=== PATIENT | male | born 1960 | race Caucasian/White ===

== ENCOUNTER → 2016-05-13 | Outpatient (CLI) | payer OTHER ==
[~2016-05-13] MED LIST: ALBI1INJ SQ; ATOR-22 PO; CLR10 PO; CRDCD240 PO; CYAN100T PO; CYAN500T13 PO; DLTCD/240 PO; FRS/40 PO; GEMF600T3 PO; INSDGIPEN SC; INSU100I2 SQ; INSU1INJ33 SQ; LISI-461 PO; LISI-729 PO; METF1000 PO; PANT40TA PO; PROAIR INH; ROPI2TAB6 PO; SPIR25TA PO; SPIR50TA3 PO
[2016-05-13 09:39] LABS: BASO % 0.2 %; BASO ABS # 0.01 K/uL (0-0.2); COMPLETE YES; EOS % 2.6 %; HEMATOCRIT 41.3 % (42-52); IG% 0.9 %; LYMPH % 31.3 %; LYMPH ABS # 1.43 K/uL (1.2-3.4); MEAN CELL VOLUME 85.9 fL (80-100); MEAN CORPUSCULAR HEMOGLOBIN 31.2 pg (25-34); MEAN CORPUSCULAR HGB CONC 36.3 g/dl (32-36); MEAN PLATELET VOLUME 11.8 fL (7.4-10.4); MONO % 8.3 %; NEUT % 56.7 %; PLATELET COUNT 160 K/uL (130-400); RED BLOOD COUNT 4.81 M/uL (4.7-6.1); WHITE BLOOD COUNT 4.57 K/uL (4.8-10.8)
[2016-05-13 09:53] LABS: ESTIMATED AVERAGE GLUCOSE 243 mg/dl; HA1C FLAG Normal (Normal)
[2016-05-13 10:03] LABS: ALT/SGPT 25 U/L (12-78); AST/SGOT 9 U/L (15-37); BLOOD UREA NITROGEN 21 mg/dl (7-18); BUN/CREATININE RATIO 17.8 (10-20); CALCIUM 8.8 mg/dl (8.5-10.1); CARBON DIOXIDE 23 mmol/L (21-32); CHLORIDE 104 mmol/L (98-107); CHOLESTEROL 127 mg/dl (0-200); GLUCOSE 230 mg/dl (70-99); POTASSIUM 4.3 mmol/L (3.5-5.1); SODIUM 136 mmol/L (136-145); TRIGLYCERIDES 257 mg/dl (0-150); VERY LOW DENSITY LIPOPROT CALC 51 mg/dl
[2016-05-13 10:08] LABS: ALB/GLOB RATIO 1.3 (0.9-2); ALKALINE PHOSPHATASE 84 U/L (45-117); CHOLESTEROL/HDL RATIO 3.6; HDL CHOLESTEROL 35 mg/dl; LDL CHOLESTEROL CALCULATED 41 mg/dl
[2016-05-13 11:03] LABS: RATIO 225.6 mcg/mg (0-30.0)
== END | disposition home or self-care (01) ==
LOC: C.LAB1850 07:55
PROVIDERS: ATTEND Nurse Practitioner Family
DX: I10 Essential (primary) hypertension (principal); E66.3 Overweight; R97.20 Elevated prostate specific antigen [PSA]; N40.0 Benign prostatic hyperplasia without lower urinary tract symptoms; E78.5 Hyperlipidemia, unspecified; R80.9 Proteinuria, unspecified; E11.21 Type 2 diabetes mellitus with diabetic nephropathy; J31.0 Chronic rhinitis

== ENCOUNTER → 2016-06-30 | Outpatient (CLI) | payer OTHER ==
--- NOTE | 2016-06-30 10:58 | DIAGNOSTIC IMAGING REPORT ---
RENAL ULTRASOUND CLINICAL HISTORY: DIABETIC NEPHROPATHY COMPARISON STUDY: None. TECHNIQUE: Sonography of the kidneys and the urinary bladder was performed. FINDINGS: The right kidney measures 11.6 x 6 x 5.1 cm and the left measures 11.6 x 4.5 x 5.5 cm. There is no hydronephrosis. Note is made of a 2.3 cm cyst within the mid aspect of the right renal pelvis. Renal echogenicity, size and cortical thickness are normal. The prostate is moderately enlarged. Interval note is made of mild splenomegaly. IMPRESSION: 1. No hydronephrosis. 2. Mild splenomegaly. 3. Moderate enlargement of the prostate. Electronically signed by: Simón Alonzo M.D. 06/30/2016 10:57 AM Dictated Date/Time: 06/30/2016 10:56 AM
== END | disposition home or self-care (01) ==
LOC: C.ULTR 10:31
PROVIDERS: ATTEND Internal Medicine Nephrology
DX: E11.21 Type 2 diabetes mellitus with diabetic nephropathy (principal); R16.1 Splenomegaly, not elsewhere classified; N40.0 Benign prostatic hyperplasia without lower urinary tract symptoms

== ENCOUNTER 2016-07-09 17:27 | Emergency (ER) | payer OTHER ==
[~2016-07-09] VITALS: Ht 165.1 cm; Wt 90.0 kg
[~2016-07-09 17:27] MED LIST changes: -ALBI1INJ SQ; -CYAN100T PO; -CYAN500T13 PO; -DLTCD/240 PO; -FRS/40 PO; -INSU100I2 SQ; -INSU1INJ33 SQ; -LISI-461 PO; -PROAIR INH; -SPIR50TA3 PO
[2016-07-09 17:38] VITALS: TEMP 36.8; Ht 165.1 cm; Wt 90.0 kg
[2016-07-09] MEDS ORDERED: FRS/40 PO (18:02)
[2016-07-09 18:54] LABS: BASO % 0.3 %; BASO ABS # 0.02 K/uL (0-0.2); COMPLETE YES; EOS % 1.4 %; HEMATOCRIT 44.9 % (42-52); IG% 0.5 %; LYMPH % 29.7 %; LYMPH ABS # 1.92 K/uL (1.2-3.4); MEAN CELL VOLUME 88.4 fL (80-100); MEAN CORPUSCULAR HEMOGLOBIN 31.1 pg (25-34); MEAN CORPUSCULAR HGB CONC 35.2 g/dl (32-36); MEAN PLATELET VOLUME 11.7 fL (7.4-10.4); MONO % 10.4 %; NEUT % 57.7 %; PLATELET COUNT 254 K/uL (130-400); RED BLOOD COUNT 5.08 M/uL (4.7-6.1); WHITE BLOOD COUNT 6.47 K/uL (4.8-10.8)
[2016-07-09 19:06] LABS: PROTHROMBIN TIME (PATIENT) 10.4 SECONDS (9.0-12.0)
[2016-07-09 19:11] LABS: BUN/CREATININE RATIO 20.9 (10-20); CREATININE 2.1 mg/dl (0.60-1.40); POTASSIUM 4.5 mmol/L (3.5-5.1)
[2016-07-09 19:14] LABS: ALB/GLOB RATIO 1.3 (0.9-2)
--- NOTE | 2016-07-09 19:14 | DIAGNOSTIC IMAGING REPORT ---
LEFT LOWER EXTREMITY VENOUS DOPPLER HISTORY: Leg swelling. Leg trauma. EVALUATE FOR DVT COMPARISON STUDY: None. FINDINGS: There is normal compressibility, flow, and augmentation within the left lower extremity deep venous system. Within the subcutaneous fat of the left medial distal thigh there is a 7.7 x 5.8 x 0.8 cm complex fluid collection. This likely represents a subcutaneous hematoma. IMPRESSION: No DVT within the left lower extremity. A 7.7 x 5.8 x 0.7 cm complex fluid cleft within the subcutaneous fat of the left medial distal thigh. This likely represents a subcutaneous hematoma. This could represent a degloving injury. Electronically signed by: Kurtis Randolph M.D. 07/09/2016 7:12 PM Dictated Date/Time: 07/09/2016 7:10 PM
[2016-07-09 19:16] VITALS: O2SAT 95
[2016-07-09] MEDS ORDERED: PANT40TA PO (19:28)
[2016-07-09] MEDS ORDERED: ALBI1INJ SQ (19:28)
[2016-07-09] MEDS ORDERED: SPIR50TA3 PO (19:28)
[2016-07-09] MEDS ORDERED: LISI-461 PO (19:28)
[2016-07-09] MEDS ORDERED: PROAIR INH (19:28)
[2016-07-09] MEDS ORDERED: DLTCD/240 PO (19:28)
[2016-07-09] MEDS ORDERED: INSU1INJ33 SQ (19:34)
[2016-07-09] MEDS ORDERED: INSU100I2 SQ (19:34)
[2016-07-09] MEDS ORDERED: CYAN100T PO (19:34)
[2016-07-09] MEDS ORDERED: SODIUM CHLORIDE 0.9% 500ML 500 ML IV STA (19:41)
[2016-07-09] MEDS ORDERED: CYAN500T13 PO (19:50)
[2016-07-09 20:41] LABS: URINE APPEARANCE CLEAR (CLEAR); URINE BILIRUBIN NEG (NEG); URINE COLOR YELLOW; URINE NITRITE NEG (NEG); URINE SPECIFIC GRAVITY 1.016 (1.000-1.030); UROBILINOGEN NEG (NEG); ZZUR CULT IF INDIC CLEAN CATCH NO
[2016-07-09 20:45] LABS: CALCIUM 10.2 mg/dl (8.5-10.1)
[2016-07-09 20:56] LABS: MANUAL MICROSCOPIC REQUIRED? NO; REVIEW REQ? NO
--- NOTE | 2016-07-09 21:52 | EMERGENCY ROOM VISIT NOTE ---
History Report prepared by Deisy: Apurva Guevara Under the Supervision of: Dr. Irwin Salazar M.D. First contact with patient: 18:30 Chief Complaint: LEG PAIN,LEG INJURY Stated Complaint: POSSIBLE BLOOD CLOT L THIGH History of Present Illness The patient is a 56 year old male who presents to the Emergency Room with complaints of worsening left leg pain that started 1 week ago. 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 He states that the pain got better but then his leg became edematous, hard, and the pain returned. The patient's workman's compensation follow-up was at [facility] earlier today and they felt that he needed to come into the ED for further evaluation to rule out a DVT. Pt denies LOC, headache, fevers, chills, diaphoresis, visual changes, neck pain, chest pain, breathing difficulties, nausea, vomiting, abdominal pain, back pain, melena, hematochezia, urinary symptoms, numbness, weakness, lymphadenopathy, rash, or other complaints. He states that he has been eating and drinking normally. The patient states that he took ibuprofen last weekend, but denies any recent aspirin use. He adds that his Lisinopril was recently increased from 5 mg to 10 mg. Source of History: patient Onset: 1 week ago Position: leg (left) Quality: other (left leg pain) Timing: worsening Note: left leg edema Review of Systems See HPI for pertinent positives and negatives. A total of ten systems were reviewed and were otherwise negative. Past Medical & Surgical Medical Problems: (1) Diabetes (2) Diverticulosis Colon (W/O Ment Of Hemorrhage) (3) Hypertension Nos Family History Diabetes mellitus FH: breast cancer Social History Smoking Status: Never Smoker Marital Status: Housing Status: lives with significant other Current/Historical Medications Scheduled Albiglutide (Tanzeum), 30 MG SQ WK Atorvastatin (Lipitor), 20 MG PO QPM Cyanocobalamin (Vitamin B12 500MCG), 500 MCG PO DAILY Diltiazem Hcl (Diltiazem Cd), 240 MG PO DAILY Furosemide (Lasix), 40 MG PO DAILY Gemfibrozil (Lopid), 1 TAB PO BID Insulin Degludec (Tresiba Flextouch), 50 UNITS SQ HS Insulin Lispro (Human) (Humalog Kwikpen), 10 UNITS SQ TID Lisinopril (Lisinopril), 10 MG PO DAILY Metformin Hcl (Glucophage), 1,000 MG PO BID Ropinirole (Requip), 2 MG PO HS Spironolactone (Aldactone), 50 MG PO DAILY Scheduled PRN [Proair], 2 PUFF INH Q4 PRN for SOB/Wheezing Allergies Coded Allergies: No Known Allergies (Verified , 02/18/16) Physical Exam Vital Signs Date Time Temp Pulse Resp B/P Pulse Ox O2 Delivery O2 Flow Rate FiO2 07/09/16 21:09 78 18 120/64 96 Room Air 07/09/16 19:16 95 Room Air 07/09/16 19:16 78 18 119/67 95 Room Air 07/09/16 17:38 36.8 92 17 115/69 97 Room Air Physical Exam GENERAL: Awake, alert, well-appearing, in no distress HENT: Normocephalic, atraumatic. Oropharynx unremarkable. EYES: Normal conjunctiva. Sclera non-icteric. NECK: Supple. No nuchal rigidity. FROM. No JVD. RESPIRATORY: Clear to auscultation. CARDIAC: Regular rate, normal rhythm. Extremities warm and well perfused. Pulses equal. ABDOMEN: Soft, non-distended. No tenderness to palpation. No rebound or guarding. No masses. RECTAL: Deferred. MUSCULOSKELETAL: Chest examination reveals no tenderness. The back is symmetrical on inspection without obvious abnormality. There is no CVA tenderness to palpation. No joint edema. LOWER EXTREMITIES: Swelling and ecchymosis to the medial left thigh over the medial aspect of the distal hamstring. Calves are equal size bilaterally and non -tender. NEURO: Normal sensorium. No sensory or motor deficits noted. SKIN: No rash or jaundice noted. Medical Decision & Procedures ER Provider Diagnostic Interpretation: Radiology results as stated below per my review and radiologist interpretation: LEFT LOWER EXTREMITY VENOUS DOPPLER FINDINGS: There is normal compressibility, flow, and augmentation within the left lower extremity deep venous system. Within the subcutaneous fat of the left medial distal thigh there is a 7.7 x 5.8 x 0.8 cm complex fluid collection. This likely represents a subcutaneous hematoma. IMPRESSION: No DVT within the left lower extremity. A 7.7 x 5.8 x 0.7 cm complex fluid cleft within the subcutaneous fat of the left medial distal thigh. This likely represents a subcutaneous hematoma. This could represent a degloving injury. Electronically signed by: Kurtis Randolph M.D. 07/09/2016 7:12 PM Dictated Date/Time: 07/09/2016 7:10 PM Laboratory Results 07/09/16 18:41 Red Blood Count 5.08, Mean Corpuscular Volume 88.4, Mean Corpuscular Hemoglobin 31.1, Mean Corpuscular Hemoglobin Concent 35.2, Mean Platelet Volume 11.7, Neutrophils (%) (Auto) 57.7, Lymphocytes (%) (Auto) 29.7, Monocytes (%) (Auto) 10.4, Eosinophils (%) (Auto) 1.4, Basophils (%) (Auto) 0.3, Neutrophils # (Auto ) 3.74, Lymphocytes # (Auto) 1.92, Monocytes # (Auto) 0.67, Eosinophils # (Auto ) 0.09, Basophils # (Auto) 0.02 07/09/16 18:41 Test 07/09/16 18:41 07/09/16 20:20 White Blood Count 6.47 K/uL (4.8-10.8) Red Blood Count 5.08 M/uL (4.7-6.1) Hemoglobin 15.8 g/dL (14.0-18.0) Hematocrit 44.9 % (42-52) Mean Corpuscular Volume 88.4 fL (80-100) Mean Corpuscular Hemoglobin 31.1 pg (25-34) Mean Corpuscular Hemoglobin Concent 35.2 g/dl (32-36) Platelet Count 254 K/uL (130-400) Mean Platelet Volume 11.7 fL (7.4-10.4) Neutrophils (%) (Auto) 57.7 % Lymphocytes (%) (Auto) 29.7 % Monocytes (%) (Auto) 10.4 % Eosinophils (%) (Auto) 1.4 % Basophils (%) (Auto) 0.3 % Neutrophils # (Auto) 3.74 K/uL (1.4-6.5) Lymphocytes # (Auto) 1.92 K/uL (1.2-3.4) Monocytes # (Auto) 0.67 K/uL (0.11-0.59) Eosinophils # (Auto) 0.09 K/uL (0-0.5) Basophils # (Auto) 0.02 K/uL (0-0.2) RDW Standard Deviation 41.0 fL (36.4-46.3) RDW Coefficient of Variation 12.8 % (11.5-14.5) Immature Granulocyte % (Auto) 0.5 % Immature Granulocyte # (Auto) 0.03 K/uL (0.00-0.02) Prothrombin Time 10.4 SECONDS (9.0-12.0) Prothromb Time International Ratio 1.0 (0.9-1.1) Activated Partial Thromboplast Time 25.0 SECONDS (21.0-31.0) Partial Thromboplastin Ratio 1.0 Anion Gap 9.0 mmol/L (3-11) Est Creatinine Clear Calc Drug Dose 39.5 ml/min Estimated GFR () 39.0 Estimated GFR (Non- 33.7 BUN/Creatinine Ratio 20.9 (10-20) Calcium Level 10.2 mg/dl (8.5-10.1) Total Bilirubin 0.6 mg/dl (0.2-1) Aspartate Amino Transf (AST/SGOT) 15 U/L (15-37) Alanine Aminotransferase (ALT/SGPT) 26 U/L (12-78) Alkaline Phosphatase 90 U/L (45-117) Total Creatine Kinase 88 U/L (39-308) Total Protein 8.3 gm/dl (6.4-8.2) Albumin 4.7 gm/dl (3.4-5.0) Globulin 3.6 gm/dl (2.5-4.0) Albumin/Globulin Ratio 1.3 (0.9-2) Urine Color YELLOW Urine Appearance CLEAR (CLEAR) Urine pH 5.0 (4.5-7.5) Urine Specific Liberal 1.016 (1.000-1.030) Urine Protein NEG (NEG) Urine Glucose (UA) NEG (NEG) Urine Ketones NEG (NEG) Urine Occult Blood NEG (NEG) Urine Nitrite NEG (NEG) Urine Bilirubin NEG (NEG) Urine Urobilinogen NEG (NEG) Urine Leukocyte Esterase NEG (NEG) Laboratory results reviewed by me Medications Administered Medications (Trade) Dose Ordered Sig/Courtney Route Start Time Stop Time Status Last Admin Dose Admin Sodium Chloride (Nss 500ml) 500 ml @ 999 mls/hr Q31M STAT IV 07/09/16 19:41 07/09/16 20:11 DC 07/09/16 19:50 999 MLS/HR ED Course 1934: The patient was evaluated in room C10. A complete history and physical exam was performed. 1940: Ordered Sodium Chloride 500 ml @ 999 mls/hr IV Medical Decision Triage Nursing notes reviewed. The patient's presentation and history were concerning for leg pain and swelling. Etiologies such as DVT, joint effusion, infection, trauma, muscular, lymphedema , idiopathic, CHF, as well as others were entertained. The patient was evaluated. He had a area of ecchymosis on the medial thigh. Blood work was obtained. The patient had an ultrasound that showed no DVT just a hematoma. There was no signs of infection. His CBC was unremarkable. Chemistry panel revealed a slight elevation of his creatinine. The patient is on Lasix and just had his lisinopril increased. His total CK is normal. The patient's urinalysis is unremarkable. The patient feels well. I discussed conservative management. The patient feels very comfortable with this. He will follow-up Tuesday for a recheck with his primary office for a creatinine and electrolytes. If he worsens in any way he will come back. By the evaluation outlined above other emergent etiologies such as those listed in the differential, as well as others, were deemed relatively unlikely. The patient and significant other were informed about the findings as listed above. All questions were answered and they were pleased with the treatment. Return instructions were outlined and the patient was discharged in stable condition. The patient was referred to his PCP for follow-up Tuesday for a recheck of the current condition. The chart was completed utilizing [employer] Speech voice recognition software. Grammatical errors, random word insertions, pronoun errors, and incomplete sentences are an occasional consequence of this system due to software limitations, ambient noise, and hardware issues. Any formal questions or concerns about the content, text, or information contained within the body of this dictation should be directly addressed to the physician for clarification. Impression Primary Impression: Leg pain, left Additional Impressions: Hematoma Acute kidney injury Scribe Attestation The scribe's documentation has been prepared under my direction and personally reviewed by me in its entirety. I confirm that the note above accurately reflects all work, treatment, procedures, and medical decision making performed by me. Departure Information Dispostion Home / Self-Care Referrals Trae Gregorio III, CRNP (PCP) Patient Instructions My [facility] Additional Instructions Cutback lisinopril to 5 mg as discussed. Hold Lasix tomorrow morning. Rest and drink plenty of fluids. Warm compresses for 20 minutes at a time four times daily for 2-3 days to the leg. Follow-up with your primary office Tuesday. A repeat chemistry panel will be necessary to assess electrolytes and kidney function. Return to the ER for worsening abdominal pain, vomiting, fevers, leg redness, difficulty breathing, chest pain, flank pain, urinary issues or as needed. Problem Qualifiers
[2016-07-09 21:54] VITALS: BP 122/66; PULSE 72; O2SAT 96
== END 2016-07-09 21:55 | disposition home or self-care (01) ==
LOC: C.EDB 17:29 → C.EDC 21:55
DX: M79.605 Pain in left leg (principal); S70.12XA Contusion of left thigh, initial encounter; W23.0XXA Caught, crushed, jammed, or pinched between moving objects, initial encounter; Y99.0 Civilian activity done for income or pay; N17.9 Acute kidney failure, unspecified; E11.9 Type 2 diabetes mellitus without complications; I10 Essential (primary) hypertension; K57.30 Diverticulosis of large intestine without perforation or abscess without bleeding; Z79.4 Long term (current) use of insulin; Z79.84 Long term (current) use of oral hypoglycemic drugs; Z83.3 Family history of diabetes mellitus; Z80.3 Family history of malignant neoplasm of breast

== ENCOUNTER → 2016-07-20 | Outpatient (CLI) | payer OTHER ==
[~2016-07-20] MED LIST changes: +ALBI1INJ SQ; -CLR10 PO; -CRDCD240 PO; +CYAN500T13 PO; +DLTCD/240 PO; +FRS/40 PO; -INSDGIPEN SC; +INSU100I2 SQ; +INSU1INJ33 SQ; +LISI-461 PO; -LISI-729 PO; -PANT40TA PO; +PROAIR INH; -SPIR25TA PO; +SPIR50TA3 PO
[2016-07-20 13:26] LABS: BLOOD UREA NITROGEN 12 mg/dl (7-18); BUN/CREATININE RATIO 10.2 (10-20); CARBON DIOXIDE 25 mmol/L (21-32); CHLORIDE 108 mmol/L (98-107); GLUCOSE 103 mg/dl (70-99); PHOSPHORUS 2.6 mg/dl (2.5-4.9); SODIUM 142 mmol/L (136-145)
== END | disposition home or self-care (01) ==
LOC: C.LAB1850 11:50
PROVIDERS: ATTEND Nurse Practitioner Family
DX: N17.9 Acute kidney failure, unspecified (principal)

== ENCOUNTER → 2016-08-20 | Outpatient (CLI) | payer OTHER ==
[2016-08-20 09:37] LABS: COMPLETE YES; EOS % 2.1 %; HEMATOCRIT 42.4 % (42-52); IG% 0.2 %; LYMPH % 27.8 %; LYMPH ABS # 1.19 K/uL (1.2-3.4); MEAN CELL VOLUME 88.9 fL (80-100); MEAN CORPUSCULAR HEMOGLOBIN 31.2 pg (25-34); MEAN CORPUSCULAR HGB CONC 35.1 g/dl (32-36); MONO % 10.5 %; NEUT % 59.4 %; PLATELET COUNT 187 K/uL (130-400); RED BLOOD COUNT 4.77 M/uL (4.7-6.1); WHITE BLOOD COUNT 4.28 K/uL (4.8-10.8)
[2016-08-20 09:41] LABS: URINE APPEARANCE CLEAR (CLEAR); URINE BILIRUBIN NEG (NEG); URINE COLOR YELLOW; URINE EPITHELIAL CELL AUTO 0-5 /lpf (0-5); URINE NITRITE NEG (NEG); URINE SPECIFIC GRAVITY 1.013 (1.000-1.030); UROBILINOGEN NEG (NEG); ZZUR CULT IF INDIC CLEAN CATCH NO
[2016-08-20 09:47] LABS: BLOOD UREA NITROGEN 23 mg/dl (7-18); BUN/CREATININE RATIO 18.9 (10-20); CALCIUM 9.6 mg/dl (8.5-10.1); CARBON DIOXIDE 22 mmol/L (21-32); CHLORIDE 103 mmol/L (98-107); GLUCOSE 126 mg/dl (70-99); MAGNESIUM 2.1 mg/dl (1.8-2.4); POTASSIUM 4.1 mmol/L (3.5-5.1); SODIUM 136 mmol/L (136-145)
[2016-08-20 09:48] LABS: PHOSPHORUS 3.1 mg/dl (2.5-4.9)
[2016-08-20 10:01] LABS: URINE TOTAL PROTEIN < 5.0 mg/dl (0-11.9)
[2016-08-20 10:11] LABS: MANUAL MICROSCOPIC REQUIRED? NO; REVIEW REQ? NO
[2016-08-23 16:27] LABS: ALBUMIN 4.7 G/DL (3.8-4.8); FREE KAPPA/LAMBDA RATIO 1.04 (0.26-1.65); FREE LAMBDA 10.6 MG/L (5.7-26.3); GAMMA GLOBULIN 0.7 G/DL (0.8-1.7); TOTAL PROTEIN 7.4 G/DL (6.2-8.3)
== END | disposition home or self-care (01) ==
LOC: C.LAB1850 07:00
PROVIDERS: ATTEND Internal Medicine Nephrology
DX: E11.21 Type 2 diabetes mellitus with diabetic nephropathy (principal)

== ENCOUNTER → 2016-09-08 | Outpatient (CLI) | payer OTHER ==
[~2016-09-08] MED LIST changes: -PROAIR INH
[2016-09-08 09:54] LABS: ESTIMATED AVERAGE GLUCOSE 151 mg/dl; HA1C FLAG Normal (Normal)
== END | disposition home or self-care (01) ==
LOC: C.LAB1850 06:57
PROVIDERS: ATTEND Physician Assistant
DX: E11.9 Type 2 diabetes mellitus without complications (principal)

== ENCOUNTER → 2016-09-20 | Day surgery (SDC) | payer OTHER ==
[2016-09-03 14:56] VITALS: BMI 35.0
[~2016-09-20] VITALS: Ht 157.5 cm; Wt 86.4 kg
[~2016-09-20] MED LIST changes: +LIDOCAINE HCL 2% 2 ML VIAL (20MG/ML) ONE; +PROPOFOL IV EMULSION 10 MG/ML 20 ML VIAL IV ONE; +SODIUM CHLORIDE 0.9% 500ML 500 ML IV ONE
[2016-09-20 07:59] VITALS: Ht 157.5 cm; Wt 86.4 kg
--- NOTE | 2016-09-20 08:48 | Endo History and Physical ---
History & Physical Date of Service: Sep 20, 2016. Chief Complaint: History of colon polyps Referring Physician: WALKER BRIDGES History of Present Illness 56 yo CM who presents for colonoscopy secondary to history of colon polyps. Past Medical History Diabetes, Male Genitourinary Prob., Hypertension Past Surgical History Hx Cardiac Surgery: No Hx Internal Defibrillator: No Hx Pacemaker: No Hx Abdominal Surgery: Yes (REPAIR RUPTURE COLON S/P COLONOSCOPY) Hx of Implantable Prosthesis: No Hx Post-Op Nausea and Vomiting: No Hx Cancer Surgery: No Hx Thoracic Surgery: No Hx Orthopedic: No Hx Urinary Tract Surgery: Yes (PROSTATE BIOPSY X2) Family History Colon CA Social History Smoking Status: Never Smoker Hx Substance Use: No Hx Alcohol Use: No Allergies Coded Allergies: No Known Allergies (Verified , 09/20/16) Current Medications Reported Home Medications Medications Dose Route/Sig Max Daily Dose Days Date Category Dose Instructions Vitamin B12 500MCG (Cyanocobalamin) 500 Mcg Tab 500 Mcg PO QAM 07/09/16 Reported Tresiba Flextouch (Insulin Degludec) 100 Unit/Ml Inj 50 Units SQ HS 07/09/16 Reported Humalog Kwikpen (Insulin Lispro (Human)) 100 Unit/Ml Inj 20 Units SQ BID 07/09/16 Reported plus sliding scale Diltiazem Cd (Diltiazem Hcl) 240 Mg Capcr 240 Mg PO QAM 07/09/16 Reported Tanzeum (Albiglutide) 30 Mg Inj 30 Mg SQ WK 07/09/16 Reported tuesday Aldactone (Spironolactone) 50 Mg Tab 50 Mg PO QAM 07/09/16 Reported Lisinopril 10 Mg Tab 5 Mg PO QAM 07/09/16 Reported Requip (Ropinirole HCl) 2 Mg Tab 2 Mg PO HS 02/18/16 Reported Lipitor (Atorvastatin Calcium) 20 Mg Tab 20 Mg PO QPM 02/18/16 Reported Lopid (Gemfibrozil) 600 Mg Tab 1 Tab PO BID 11/23/14 Reported Glucophage (Metformin Hcl) 1,000 Mg Tab 1,000 Mg PO BID 02/02/13 Reported Lasix (Furosemide) 40 Mg Tab 40 Mg PO QAM 07/16/09 Reported Vital Signs Weight (Kilograms): 86.36 Height (Feet): 5 Height (Inches): 2 Date Time Temp Pulse Resp B/P (MAP) Pulse Ox O2 Delivery O2 Flow Rate FiO2 09/20/16 08:14 36.6 56 16 162/100 (120) 97 Room Air Physical Exam General Appearance: WD/WN, no apparent distress Respiratory/Chest: Auscultation: breath sounds normal Cardiovascular: Heart Auscultation: RRR Abdomen: Bowel Sounds: normal Inspection & Palpation: soft, non-distended, no tenderness, guarding & rebound Assessment and Plan Assessment: 56 yo CM who presents for colonoscopy secondary to history of colon polyps. Plan: Proceed with colonoscopy.
--- NOTE | 2016-09-20 09:23 | Discharge Instructions ---
Endoscopy Patient Instructions Date / Procedure(s) Performed Sep 20, 2016. Colonoscopy Allergy Information Coded Allergies: No Known Allergies (Verified , 09/20/16) Discharge Date / Findings Sep 20, 2016. Colon polyp Rectal polyp Internal hemorrhoids Medication Instructions Stopped Medication(s): ONLY METFORMIN 2 DAYS....NO MEDICATIONS TAKEN TODAY OK to resume all medications today as prescribed Reported Home Medications Medications Dose Route/Sig Max Daily Dose Days Date Category Dose Instructions Vitamin B12 500MCG (Cyanocobalamin) 500 Mcg Tab 500 Mcg PO QAM 07/09/16 Reported Tresiba Flextouch (Insulin Degludec) 100 Unit/Ml Inj 50 Units SQ HS 07/09/16 Reported Humalog Kwikpen (Insulin Lispro (Human)) 100 Unit/Ml Inj 20 Units SQ BID 07/09/16 Reported plus sliding scale Diltiazem Cd (Diltiazem Hcl) 240 Mg Capcr 240 Mg PO QAM 07/09/16 Reported Tanzeum (Albiglutide) 30 Mg Inj 30 Mg SQ WK 07/09/16 Reported tuesday Aldactone (Spironolactone) 50 Mg Tab 50 Mg PO QAM 07/09/16 Reported Lisinopril 10 Mg Tab 5 Mg PO QAM 07/09/16 Reported Requip (Ropinirole HCl) 2 Mg Tab 2 Mg PO HS 02/18/16 Reported Lipitor (Atorvastatin Calcium) 20 Mg Tab 20 Mg PO QPM 02/18/16 Reported Lopid (Gemfibrozil) 600 Mg Tab 1 Tab PO BID 11/23/14 Reported Glucophage (Metformin Hcl) 1,000 Mg Tab 1,000 Mg PO BID 02/02/13 Reported Lasix (Furosemide) 40 Mg Tab 40 Mg PO QAM 07/16/09 Reported Provider Instructions Activity Restrictions - No exercising or heavy lifting for 24 hours. - Do not drink alcohol the day of the procedure. - Do not drive a car or operate machinery until the day after the procedure. - Do not make any important decisions or sign important papers in 24 hours after the procedure. Following Day: - Return to full activity which may include returning to work/school. Diet Start your diet with liquids and light foods (jello, soup, juice, toast). Then eat your usual diet if not nauseated. Treatment For Common After Affects For mild abdominal pain, bloating, or excessive gas: - Rest - Eat lightly - Lie on right side Follow-Up Information Follow-up with WALKER BRIDGES as scheduled Anesthesia Information What You Should Know You have had a procedure that required some medicine to reduce anxiety and discomfort. This treatment is called moderate sedation. After receiving the treatment, you may be sleepy, but you will be able to breathe on your own. The effects of the treatment may last for several hours. Follow these instructions along with Activity/Diet recommendations noted above: * Do NOT do anything where dizziness or clumsiness would be dangerous. * Rest quietly at home today, then you can be up and about tomorrow. * Have a responsible person stay with you the rest of today. * You may have had an I.V. today. If so, you may take the dressing off later today. Recommendations Call your doctor if: * Trouble breathing * Continuous vomiting for more than 24 hours * Temperature above 101 degrees * Severe abdominal pain or bloating * Pain not relieved by pain medicine ordered * There is increased drainage or redness from any incision * A large amount of rectal bleeding greater than 2-3 tablespoons. (If you had a polyp/s removed or have hemorrhoids, a small amount of blood - from the rectum is to be expected.) * You have any unanswered questions or concerns. IN THE EVENT OF A SERIOUS EMERGENCY, GO TO THE NEAREST EMERGENCY ROOM Your discharge instructions were prepared by provider Rogerio Maldonado. Patient Instructions Signature Page Sanford Schuster Patient (or Guardian) Signature/Date: I have read and understand the instructions given to me by my caregivers. Caregiver/RN/Doctor Signature/Date: The above-named patient and/or guardian has received patient instructions on this date. + Original Patient Signature Page (only) stays with chart. Please make copy for patient.
--- NOTE | 2016-09-20 09:37 | GI REPORT ---
Procedure Date: 09/20/2016 8:37 AM Procedure: Colonoscopy Indications: High risk colon cancer surveillance: Personal history of colonic polyps Medicines: Monitored Anesthesia Care Complications: No immediate complications. Estimated Blood Loss: Estimated blood loss: none. Estimated blood loss: none. Procedure: Pre-Anesthesia Assessment: - Prior to the procedure, a History and Physical was performed, and patient medications and allergies were reviewed. The patient's tolerance of previous anesthesia was also reviewed. The risks and benefits of the procedure and the sedation options and risks were discussed with the patient. All questions were answered, and informed consent was obtained. Prior Anticoagulants: The patient has taken no previous anticoagulant or antiplatelet agents. ASA Grade Assessment: III - A patient with severe systemic disease. After reviewing the risks and benefits, the patient was deemed in satisfactory condition to undergo the procedure. After I obtained informed consent, the scope was passed under direct vision. Throughout the procedure, the patient's blood pressure, pulse, and oxygen saturations were monitored continuously. The Scope was introduced through the anus and advanced to the cecum, identified by appendiceal orifice and ileocecal valve. The colonoscopy was performed without difficulty. The patient tolerated the procedure well. The quality of the bowel preparation was fair. The ileocecal valve, appendiceal orifice, and rectum were photographed. Findings: Two sessile polyps were found in the rectum and in the sigmoid colon. The polyps were 2 to 4 mm in size. These polyps were removed with a cold snare. Resection was complete, but the polyp tissue was only partially retrieved. Non-bleeding internal hemorrhoids were found during retroflexion. The hemorrhoids were small. A moderate amount of solid stool was found in the entire colon, making visualization difficult. Lavage of the area was performed using a large amount, resulting in clearance with fair visualization. Impression: - Two 2 to 4 mm polyps in the rectum and in the sigmoid colon, removed with a cold snare. Complete resection. Partial retrieval. - Non-bleeding internal hemorrhoids. - Stool in the entire examined colon. Recommendation: - Resume previous diet. - Continue present medications. - Repeat colonoscopy for surveillance based on pathology results. - Return to primary care physician as previously scheduled. Rogerio Maldonado DO 09/20/2016 9:37:11 AM This report has been signed electronically. Note Initiated On: 09/20/2016 8:37 AM I attest to the content of the Intraoperative Record and orders documented therein, exceptions below
[2016-09-20 09:49] VITALS: BP 140/89; PULSE 62; O2SAT 98
--- NOTE | 2016-09-20 09:50 | Anesthesiology Progress Note ---
Anesthesia Post Op Note Date & Time Sep 20, 2016 at 09:49 Vital Signs Pain Intensity: 0 Vital Signs Past 12 Hours Date Time Temp Pulse Resp B/P (MAP) Pulse Ox O2 Delivery O2 Flow Rate FiO2 09/20/16 09:30 60 20 137/92 (107) 97 Room Air 09/20/16 09:15 63 20 123/89 (100) 98 Room Air 09/20/16 08:14 36.6 56 16 162/100 (120) 97 Room Air Notes Mental Status: alert / awake / arousable, participated in evaluation Pt Amnestic to Procedure: Yes Nausea / Vomiting: adequately controlled Pain: adequately controlled Airway Patency, RR, SpO2: stable & adequate BP & HR: stable & adequate Hydration State: stable & adequate Anesthetic Complications: no major complications apparent The patient did not take his BP medication today. He was instructed to take them as soon as he gets home. He understands and agrees.
== END | disposition home or self-care (01) ==
LOC: C.GI 07:28
PROVIDERS: ATTEND Internal Medicine
DX: Z12.11 Encounter for screening for malignant neoplasm of colon (principal); Z86.010 Personal history of colon polyps; Z83.71 Family history of colonic polyps; D12.5 Benign neoplasm of sigmoid colon; K62.1 Rectal polyp; K64.8 Other hemorrhoids; E11.9 Type 2 diabetes mellitus without complications; I10 Essential (primary) hypertension; Z79.4 Long term (current) use of insulin; Z79.84 Long term (current) use of oral hypoglycemic drugs; G47.33 Obstructive sleep apnea (adult) (pediatric); G25.81 Restless legs syndrome; Z90.89 Acquired absence of other organs

== ENCOUNTER → 2016-12-30 | Outpatient (CLI) | payer OTHER ==
[~2016-12-30] MED LIST changes: -LIDOCAINE HCL 2% 2 ML VIAL (20MG/ML) ONE; -PROPOFOL IV EMULSION 10 MG/ML 20 ML VIAL IV ONE; -SODIUM CHLORIDE 0.9% 500ML 500 ML IV ONE
[2016-12-30 09:58] LABS: CHOLESTEROL/HDL RATIO 2.9
[2016-12-30 10:05] LABS: ESTIMATED AVERAGE GLUCOSE 200 mg/dl; HA1C FLAG Normal (Normal)
== END | disposition home or self-care (01) ==
LOC: C.LAB1850 06:56
PROVIDERS: ATTEND Physician Assistant
DX: E78.5 Hyperlipidemia, unspecified (principal); E11.9 Type 2 diabetes mellitus without complications

== ENCOUNTER → 2017-02-11 | Outpatient (CLI) | payer OTHER ==
--- NOTE | 2017-02-11 07:24 | DIAGNOSTIC IMAGING REPORT ---
ABDOMINAL ULTRASOUND HISTORY: Palpable right upper quadrant lump. History of melanoma. COMPARISON: None. TECHNIQUE: Sonography of the right anterior abdominal wall was performed at site of palpable abnormality. FINDINGS: There is a subtle 2.5 x 0.9 x 2 cm lesion within the subcutaneous tissues of the anterior abdominal wall of the right upper quadrant. This likely reflects the palpable abnormality. This has similar echogenicity to the remainder of the subcutaneous fat. IMPRESSION: 2.5 x 0.9 x 2 cm subcutaneous lesion of the right anterior abdominal wall which likely reflects the palpable abnormality. This has similar echogenicity to the adjacent subcutaneous fat. The sonographic appearance favors a lipoma. Clinical follow up to ensure stability is recommended. Electronically signed by: Simón Alonzo M.D. 02/11/2017 7:23 AM Dictated Date/Time: 02/11/2017 7:20 AM
== END | disposition home or self-care (01) ==
LOC: C.ULTR 06:38
PROVIDERS: ATTEND Dermatology
DX: L98.9 Disorder of the skin and subcutaneous tissue, unspecified (principal)

== ENCOUNTER → 2017-04-27 | Outpatient (CLI) | payer OTHER ==
[2017-04-27 09:34] LABS: BASO % 0.3 %; BASO ABS # 0.01 K/uL (0-0.2); EOS % 2.6 %; HEMATOCRIT 42.9 % (42-52); HEMOGLOBIN 15.6 g/dL (14.0-18.0); IG# 0.02 K/uL (0.00-0.02); LYMPH % 27.2 %; LYMPH ABS # 1.04 K/uL (1.2-3.4); MEAN CELL VOLUME 86.1 fL (80-100); MEAN CORPUSCULAR HEMOGLOBIN 31.3 pg (25-34); MEAN CORPUSCULAR HGB CONC 36.4 g/dl (32-36); MEAN PLATELET VOLUME 11.7 fL (7.4-10.4); MONO % 9.7 %; MONO ABS # 0.37 K/uL (0.11-0.59); NEUT % 59.7 %; NEUT ABS # 2.29 K/uL (1.4-6.5); PLATELET COUNT 151 K/uL (130-400); RED CELL DISTRIBUTION WIDTH CV 12.9 % (11.5-14.5); RED CELL DISTRIBUTION WIDTH SD 40.5 fL (36.4-46.3); WHITE BLOOD COUNT 3.83 K/uL (4.8-10.8)
[2017-04-27 09:37] LABS: HEMOGLOBIN A1C 12.1 % (4.5-5.6)
[2017-04-27 09:53] LABS: ALBUMIN 4.1 gm/dl (3.4-5.0); ALT/SGPT 30 U/L (12-78); BLOOD UREA NITROGEN 20 mg/dl (7-18); CALCIUM 9.3 mg/dl (8.5-10.1); CARBON DIOXIDE 26 mmol/L (21-32); CREATININE 1.16 mg/dl (0.60-1.40); GLUCOSE 375 mg/dl (70-99); PHOSPHORUS 3.2 mg/dl (2.5-4.9); POTASSIUM 4.2 mmol/L (3.5-5.1); SODIUM 132 mmol/L (136-145)
== END | disposition home or self-care (01) ==
LOC: C.LAB1850 07:34
PROVIDERS: ATTEND Internal Medicine Nephrology
DX: E11.9 Type 2 diabetes mellitus without complications (principal); I10 Essential (primary) hypertension

== ENCOUNTER → 2017-09-28 | Outpatient (CLI) | payer OTHER ==
[~2017-09-28] MED LIST changes: -GEMF600T3 PO; +GEMF600T5 PO; -SPIR50TA3 PO; +SPIR50TA5 PO
== END | disposition home or self-care (01) ==
LOC: C.LAB1850 17:22
PROVIDERS: ATTEND Internal Medicine Nephrology
DX: N18.2 Chronic kidney disease, stage 2 (mild) (principal)